=== PATIENT | male | born 2000 | race Caucasian/White ===

== ENCOUNTER 2020-04-19 22:00 | Emergency (ER) | payer SELFPAY ==
[~2020-04-19] VITALS: Ht 185.4 cm; Wt 63.6 kg
[2020-04-19 22:05] VITALS: BP 117/83
[2020-04-19] MEDS ORDERED: LIDOcaine 1% W/epiNEPHrine 1:200,000 10ml vial IJ ONE (23:10)
--- NOTE | 2020-04-19 23:35 | NUR ---
Informed PA that the pt was at the nurses station and stated his pain increased.
== END 2020-04-20 00:24 | disposition home or self-care (01) ==
LOC: ER 22:01
DX: S62.396A Other fracture of fifth metacarpal bone, right hand, initial encounter for closed fracture (principal); M79.641 Pain in right hand; X58.XXXA Exposure to other specified factors, initial encounter; Y93.89 Activity, other specified; Y92.89 Other specified places as the place of occurrence of the external cause; Y99.8 Other external cause status
CPT/HCPCS: 26605; 73130; 99284; 99285

== ENCOUNTER 2020-12-14 16:07 | Emergency (ER) | payer SELFPAY ==
[~2020-12-14] VITALS: Ht 188 cm; Wt 63.2 kg
[2020-12-14] MEDS ORDERED: ondansetron/PF 4mg/2ml inj IV ONE (17:05)
[2020-12-14] MEDS ORDERED: normal saline 1000ML IV soln IVB ONE ×2 (17:05→18:25)
--- NOTE | 2020-12-14 17:38 | NUR ---
PT WAS DIFFICULT TO WAKEN, WAS NOTIFIED, ORDER FOR CT PLACED. PT BACK FROM CT SCAN, SOMEWHAT MORE AWAKE AT THIS TIME
--- NOTE | 2020-12-14 19:04 | NUR ---
Pt awake and talking to visitor in room. Pt states he is ready to go home.
--- NOTE | 2020-12-14 19:22 | NUR ---
Patient is awake, well oriented. Girlfriend is at bedside. IV DC'd, cath intact. Patient is ambulatory, gait is mildly ataxic. He is being taken home by his girlfriend. Discharge instructions explained to patient and girlfriend. Both exhibit understanding. Girlfriend will review disch inst with patient once again in am. Patient is going home to sleep.
[2020-12-14 19:26] VITALS: BP 112/56
== END 2020-12-14 19:29 | disposition home or self-care (01) ==
LOC: ER 16:07
DX: S00.81XA Abrasion of other part of head, initial encounter (principal); F10.129 Alcohol abuse with intoxication, unspecified; Y90.9 Presence of alcohol in blood, level not specified; W22.8XXA Striking against or struck by other objects, initial encounter; Y93.89 Activity, other specified; Y92.89 Other specified places as the place of occurrence of the external cause; Y99.8 Other external cause status
CPT/HCPCS: 36415; 70450; 80320; 96361; 96374; 99284; J2405; J7030

== ENCOUNTER 2021-12-27 15:14 | Emergency (ER) | payer OTHER ==
[~2021-12-27] VITALS: Ht 185.4 cm; Wt 64.5 kg
[2021-12-27 15:41] VITALS: BP 118/73
== END 2021-12-27 17:15 | disposition home or self-care (01) ==
LOC: ER 15:15
DX: B08.4 Enteroviral vesicular stomatitis with exanthem (principal); F17.200 Nicotine dependence, unspecified, uncomplicated; Z87.81 Personal history of (healed) traumatic fracture
CPT/HCPCS: 99281

== ENCOUNTER 2022-06-26 00:12 | Emergency (ER) | payer OTHER ==
[~2022-06-26] VITALS: Ht 182.9 cm; Wt 59.0 kg
[2022-06-26 02:29] LABS: BASOPHILS % (AUTO) 0.3 % (0-1); EOSINOPHILS % (AUTO) 0.1 % (0-6); HEMATOCRIT 42.5 % (42.0-52.0); HEMOGLOBIN 14.6 g/dl (14.0-17.9); LYMPHOCYTES # (AUTO) 1.8 X10'3 (1.1-4.8); LYMPHOCYTES % (AUTO) 19.4 % (21-51); MEAN CORPUSCULAR HEMOGLOBIN 31.1 PG (27.0-31.0); MEAN CORPUSCULAR HGB CONC 34.4 g/dL (33.0-36.5); MEAN CORPUSCULAR VOLUME 90.4 FL (78-98); MEAN PLATELET VOLUME 7.6 FL (7.4-10.4); MONOCYTES # (AUTO) 0.6 X10'3 (0-0.9); MONOCYTES % (AUTO) 6.4 % (2-12); NEUTROPHILS # (AUTO) 6.7 X10'3 (1.8-7.7); NEUTROPHILS % (AUTO) 73.8 % (42-75); PLATELET COUNT 278 X10'3 (140-440); RED CELL DISTRIBUTION WIDTH 12.5 % (11.5-14.5); WHITE BLOOD COUNT 9.1 X10'3 (4.5-11.0)
[2022-06-26 02:34] LABS: ALANINE AMINOTRANSFERASE 16 U/L (12-78); ALBUMIN 4.3 G/DL (3.4-5.0); ALBUMIN/GLOBULIN RATIO 1.2 (1.1-1.5); ALKALINE PHOSPHATASE 72 IU/L (46-116); ANION GAP 8 (8-16); ASPARTATE AMINO TRANSFERASE 20 U/L (10-37); BILIRUBIN,TOTAL 0.7 MG/DL (0.1-1.0); BLOOD UREA NITROGEN 11 MG/DL (7-18); BUN/CREATININE RATIO 9.8 (5.4-32.0); CALCIUM 9.1 MG/DL (8.5-10.1); CHLORIDE 101 MMOL/L (99-107); CREATININE 1.12 MG/DL (0.60-1.10); ETHANOL < 0.010 GM/DL (0.0-0.010); GLUCOSE 88 MG/DL (70-104); POTASSIUM 3.5 MMOL/L (3.5-5.1); SODIUM 138 MMOL/L (135-145); TOTAL CARBON DIOXIDE 28.6 MMOL/L (24-32); TOTAL PROTEIN 7.8 G/DL (6.4-8.2); eGFR 81 ML/MIN
[2022-06-26 02:38] LABS: ACETAMINOPHEN < 2.0 UG/ML (10-30)
[2022-06-26 02:41] LABS: URINE AMPHETAMINE SCREEN NEGATIVE (Neg); URINE BARBITUATE SCREEN NEGATIVE (Neg); URINE BENZODIAZEPINES SCREEN NEGATIVE (Neg); URINE CANNABINOID SCREEN POSITIVE (Neg); URINE COCAINE SCREEN NEGATIVE (Neg); URINE METHADONE SCREEN NEGATIVE (Neg); URINE OPIATE SCREEN NEGATIVE (Neg); URINE PHENCYCLIDINE SCREEN NEGATIVE (Neg)
--- NOTE | 2022-06-26 06:22 | NUR ---
pt sleeping, no needs at this time.
--- NOTE | 2022-06-26 06:32 | NUR ---
Upon assessment, pt is sleeping, appears comfortable, breathing non-labored. Room has previously been optimized for suicide risk prevention. Will continue to monitor and assess.
[2022-06-26 09:32] VITALS: BP 129/79
--- NOTE | 2022-06-26 11:16 | NUR ---
Gave report to the overflow, RN
--- NOTE | 2022-06-26 12:09 | NUR ---
Patient eating lunch. No distress observed.
[2022-06-26 13:08] LABS: CLARITY,URINE TURBID (Clear); COLOR,URINE YELLOW (Yellow); GLUCOSE, URINE NEGATIVE (Neg); KETONES,URINE NEGATIVE (Neg); LEUKOCYTE ESTERASE ,URINE NEGATIVE (Neg); NITRITES, URINE NEGATIVE (Neg); OCCULT BLOOD,URINE NEGATIVE (Neg); PH,URINE 5.5 (4.8-8.0); PROTEIN,URINE TRACE mg/dl (Neg); UROBILINOGEN,URINE 0.2 E.U/dL (0.2-1.0)
[2022-06-26 13:09] LABS: UA COLLECTION TYPE NON-SPECIFIED
[2022-06-26 13:15] LABS: AMORPHOUS URATES 3+; BACTERIA,URINE NONE SEEN /HPF (Neg); MUCUS STRANDS FEW /LPF (Neg); RBC,URINE NONE SEEN /HPF (0-2); SQUAMOUS EPITHELIAL CELL,UR FEW /LPF (FEW); WBC,URINE NONE SEEN /HPF (0-4)
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
--- NOTE | 2022-06-26 15:03 | NUR ---
Patient watching T.V. No distress observed at this time. Continue to monitor.
== END 2022-06-26 15:26 ==
LOC: ER 00:12
DX: R45.851 Suicidal ideations (principal); Z20.822 Contact with and (suspected) exposure to COVID-19; Z87.81 Personal history of (healed) traumatic fracture
CPT/HCPCS: 36415; 80053; 80305; 80320; 80329; 81001; 84443; 85025; 87635; 99285; C9803